=== PATIENT | male | born 1955 | race Caucasian/White ===

== ENCOUNTER 2017-09-27 16:04 | Emergency (ER) | payer MEDICARE, SELFPAY ==
--- NOTE | 2017-09-27 15:05 | RAD_ITS ---
STUDY: X-RAY - LEFT SHOULDER REASON FOR EXAM: Male, 62 years old. Dislocated shoulder TECHNIQUE: 1 view(s) of the shoulder. COMPARISON: None. FINDINGS: Anterior dislocation of the shoulder. No evidence of fracture. Degenerative changes RAD/Shoulder One View IMPRESSION: Shoulder dislocation Electronically Signed: Adriano Haynes DO at 15:32 EDT Tel , Service support ,
--- NOTE | 2017-09-27 15:50 | RAD_ITS ---
STUDY: X-RAY - LEFT SHOULDER REASON FOR EXAM: Male, 62 years old. Post reduction. TECHNIQUE: 2 view(s) of the shoulder. COMPARISON: None. FINDINGS: Note that no previous exams are provided. No evidence for dislocation or subluxation. No fracture visualized. Severe degenerative changes. The soft tissue structures are unremarkable. Normal visualized pulmonary apex. RAD/Shoulder min 2 Views IMPRESSION: No dislocation or subluxation. Degenerative changes. Electronically Signed: Neo Coulter MD at 16:08 EDT , Service support ,
--- NOTE | 2017-09-27 16:04 | DT_ITS ---
This patient was seen during an EMR downtime September 21, 2017 - September 28, 2017. This patient may have a combination of paper and electronic documentation or all paper documentation. All documentation is viewable within the e-chart portion of [email or web address] for each patient visit.
== END 2017-09-27 16:58 | disposition home or self-care (01) ==
LOC: ED 09-28 08:26
PROVIDERS: Emergency Provider Emergency Medicine; Family Provider Family Medicine; PCP Family Medicine
DX: S43.005A Unspecified dislocation of left shoulder joint, initial encounter (principal); X58.XXXA Exposure to other specified factors, initial encounter; Y93.64 Activity, baseball; Y92.9 Unspecified place or not applicable; I10 Essential (primary) hypertension; E78.00 Pure hypercholesterolemia, unspecified; F41.9 Anxiety disorder, unspecified; F32.9 Major depressive disorder, single episode, unspecified; Z79.899 Other long term (current) drug therapy
CPT/HCPCS: 23650; 73020; 73030; 96374; 99285; A4216

== ENCOUNTER 2022-04-10 21:58 | Emergency (ER) | payer MEDICARE, SELFPAY ==
[2022-04-10 21:59] VITALS: BP 168/91; PULSE 83; RESP 15; TEMP 36.9; O2SAT 95; BMI 29.5
--- NOTE | 2022-04-10 22:15 | EDS_ITS ---
HPI History of Present Illness Chief Complaint: Lower Extremity Injury Narrative Narrative: Patient presents with left foot pain. He states this started yesterday when he was walking up a hill and it started to hurt. Now every time he walks or steps on it it hurts. If he rests it it does not hurt that much. No significant swelling. He states there is a little bit of bruising in the tip but it does not hurt where its bruised. No calf pain or swelling. No chest pain or trouble breathing. He is not on any blood thinners. Note he is listed as being on Vasotec but he states he has not been taking it. This might be contributing to his slightly elevated blood pressure. PFSH PFS Home Medications aspirin 81 mg chewable tablet 81 mg PO DAILY@0800 06/25/15 [History Last Taken 06/24/15] citalopram 40 mg tablet 40 mg PO DAILY 06/25/15 [History Last Taken 06/25/15] enalapril maleate 20 mg tablet (Vasotec) 20 mg PO DAILY 06/25/15 [History Last Taken 06/25/15] meloxicam 15 mg tablet (Mobic) 15 mg PO QHS 06/25/15 [History Last Taken 06/24/15] simvastatin 20 mg tablet 20 mg PO QHS 06/25/15 [History Last Taken 06/24/15] multivitamin (Daily Multiple tablet) 1 ea PO DAILY 10/21/15 [History Last Taken Unknown] hydrocodone-acetaminophen 5-325mg 5mg-325mg 1 - 2 tab PO Q4H PRN PRN Pain ##30 11/02/15 [Rx Last Taken Unknown] Allergy/AdvReac Type Severity Reaction Status Date / Time No Known Allergies Allergy Verified 04/10/22 22:01 Social History Smoking Status: Never smoker ROS ROS ED Constitutional Constitutional ED: Denies chills or fever(s) Gastrointestinal Gastrointestinal: Denies nausea or vomiting Musculoskeletal Musculoskeletal: Reports arthralgias and other Details: See history of present illness. Integumentary Denies rash Neurologic Neurologic: Denies paresthesias or weakness Hematologic/Lymphatic Hematologic/Lymphatic: Denies easy bleeding, easy bruising or lymphadenopathy Allergic/Immunologic Allergic/Immunologic ED: Denies urticaria EXAM Physical Exam Const Vital Signs: 04/10/22 21:59 Temperature 98.5 F Temperature Source Temporal Pulse Rate 83 Respiratory Rate 15 Blood Pressure 168/91 H Blood Pressure Mean 116 Pulse Ox 95 Oxygen Delivery Method Room Air Positive well nourished and well developed General Appearance ED: well developed HEENT atraumatic Resp normal respiratory effort Back/Spine no CVA tenderness Extremity full ROM Extremity Narrative: Patient does have just a little bit of ecchymosis at the base of his third toe. But he states it does not hurt there and is nontender. He does have tenderness at the proximal aspect of the fifth and a little bit toward the fourth metatarsal. There appears to be a small amount of swelling locally. No erythema. No warmth. No lymphangitic streaking. No diffuse swelling. No involvement of any problems of the ankle or calf or higher. General Extremety ED: Negative for cyanosis or edema General Extremity: Negative for cyanosis or edema Neuro moves all extremities and no sensory deficits noted Sensorium / Orientation: alert Skin no wounds Skin Narrative: See above MDM MDM MDM Narrative Medical decision making narrative: X-ray showed no acute fracture. Base patient will use ice elevation rest. I explained that if it still hurting it may need repeat x-ray. He could have a stress fracture. We discussed reasons to return including swelling or swelling or pain of the leg. Radiography Diagnostic Testing: Clinical Impression(s) from Imaging Studies Foot X-Ray 04/10/22 22:25 IMPRESSION: Negative left foot x-rays. Electronically Signed: Trevin Ng MD at 22:36 EST Reading Location ID and State: [facility][note 3]6 / [place] Tel , Service support , Three-view x-ray left foot looked at by me and read by radiology shows no acute process. I do see some signs of arthritic changes. Discharge Plan Triage Chief Complaint: Lower Extremity Injury ED Provider: Trino Michelle Dx/Rx/DC Orders Clinical Impression: Acute pain of left foot Instructions: ED Foot Sprain Prescriptions: No Action citalopram 40 MG tablet 40 mg PO DAILY Label Comments: antidepressant enalapril maleate [Vasotec] 20 MG tablet 20 mg PO DAILY Label Comments: HTN meloxicam [Mobic] 15 MG tablet 15 mg PO QHS Label Comments: anti-inflammatory simvastatin 20 MG tablet 20 mg PO QHS Label Comments: cholesterol aspirin 81 MG Tab.Chew 81 mg PO DAILY@0800 Label Comments: heart health multivitamin [Daily Multiple] 1 EACH tablet 1 ea PO DAILY hydrocodone-acetaminophen 1 TABLET tablet 1 - 2 tab PO Q4H PRN PRN (Reason: Pain) Qty: 30 0RF Primary Care Provider: Prashant Cruz Referrals: Prashant Cruz MD [Primary Care Provider] - 5-7 Days Disposition Disposition: Home, Self Care
--- NOTE | 2022-04-10 22:25 | RAD_ITS ---
EXAM: XR LEFT FOOT COMPLETE, 3 OR MORE VIEWS CLINICAL INDICATION: Trauma. Left lateral foot pain for 2 days. TECHNIQUE: Frontal, lateral and oblique views of the left foot. This report was created using [employer] report generation technology. COMPARISON: None. FINDINGS: BONES/JOINTS: Unremarkable. No acute fracture. No subluxation. Normal alignment. Preservation of the joint space. No sclerotic or destructive changes observed. SOFT TISSUES: Unremarkable. No soft tissue swelling or gas. No radiopaque foreign body. RAD/Foot min 3 Views IMPRESSION: Negative left foot x-rays. Electronically Signed: Trevin Ng MD at 22:36 EST ,
== END 2022-04-10 23:29 | disposition home or self-care (01) ==
PROVIDERS: Emergency Provider Emergency Medicine; PCP Family Medicine; Visit Provider Emergency Medicine
DX: M79.672 Pain in left foot (principal)
CPT/HCPCS: 73630; 99282

== ENCOUNTER 2022-07-24 15:43 | Emergency (ER) | payer MEDICARE, SELFPAY ==
[2022-07-24 15:44] VITALS: BP 139/89; PULSE 64; RESP 16; O2SAT 94
[2022-07-24 15:45] VITALS: BP 152/91; PULSE 69; RESP 12; TEMP 36.1; O2SAT 94; BMI 30.4
--- NOTE | 2022-07-24 15:56 | EDS_ITS ---
HPI History of Present Illness Chief Complaint: Laceration Informant: patient Occured/Mechanism Mechanism/Context: Yes fall Onset/Context/Timing Onset: Today Associated Symptoms Associated Symptoms: Positive for Loss of Funtion; Negative for Parasthesia or Weakness Narrative Narrative: [id number]-[id number] patient states he was coming down some steps and there was a board that he slipped on causing him to fall and GM his left ring finger on concrete. States he is not exactly sure how it occurred, but he noticed a laceration and he is unable to move it. Denies any other fingers that are injured. Sustained abrasions to his forehead and his right hand denies any other injuries. He has no headache, loss of consciousness, vision trouble, focal neurologic symptoms. He has been able to ambulate since then. Denies any other injuries or pain. No prodromal symptoms. Tetanus Immunization: Unknown [facility] Medical History (Updated 07/24/22 @ 17:[address] Josue Dixon MD) Depression Hyperlipidemia Hypertension Transient ischemic attack Home Medications aspirin 81 mg chewable tablet 81 mg PO DAILY@0800 06/25/15 [History Last Taken 06/24/15] citalopram 40 mg tablet 40 mg PO DAILY 06/25/15 [History Last Taken 06/25/15] enalapril maleate 20 mg tablet (Vasotec) 20 mg PO DAILY 06/25/15 [History Last Taken 06/25/15] meloxicam 15 mg tablet (Mobic) 15 mg PO QHS 06/25/15 [History Last Taken 06/24/15] simvastatin 20 mg tablet 20 mg PO QHS 06/25/15 [History Last Taken 06/24/15] multivitamin (Daily Multiple tablet) 1 ea PO DAILY 10/21/15 [History Last Taken Unknown] hydrocodone-acetaminophen 5-325mg 5mg-325mg 1 - 2 tab PO Q4H PRN PRN Pain ##30 11/02/15 [Rx Last Taken Unknown] cephalexin 500 mg capsule 500 mg PO TID 5 days #15 CAPSULES 07/24/22 [Rx Last Taken Unknown] Allergy/AdvReac Type Severity Reaction Status Date / Time No Known Allergies Allergy Verified 07/24/22 15:45 Social History Smoking Status: Never smoker ROS ROS ED Constitutional Constitutional ED: Denies chills or fever(s) Eyes Eyes: Denies change in vision or diplopia ENT ENT ED: Denies dental pain, ear pain or epistaxis Cardiovascular Cardiovascular: Denies chest pain Respiratory/Chest Respiratory/Chest: Denies cough Gastrointestinal Gastrointestinal: Denies nausea or vomiting Musculoskeletal Musculoskeletal: Reports extremity pain; Denies neck pain Integumentary Reports Abrasions and wounds; Denies rash Neurologic Neurologic: Denies headache(s), paresthesias or weakness EXAM Physical Exam Const Vital Signs: 07/24/22 15:45 Temperature 97 F L Temperature Source Temporal Pulse Rate 69 Respiratory Rate 12 Blood Pressure 152/91 H Blood Pressure Mean 111 Pulse Ox 94 Oxygen Delivery Method Room Air Positive well nourished and well developed General Appearance ED: well developed and NAD HEENT Reports moist mucous membranes HEENT Narrative: Left forehead, right mandible body area abrasions, no bony tenderness, deformities, or other signs of trauma. No mirza sign or periorbital ecchymosis. No CSF otorhinorrhea. Eyes PERRL and EOMs intact bilaterally Neck full ROM and supple Chest Wall inspection of chest normal and palpation of chest normal Resp normal respiratory effort Back/Spine normal ROM and normal to inspection Extremity Extremity Narrative: Patient has a deformity of the left middle finger PIPJ, it is hyperextended and locked into place. At the volar aspect at this area, there is a laceration that is approximately 3 cm in length, horizontal, exposing the FDS and FDP tendons, they do not appear to be injured, however at this time patient is not able to use them because of the deformity. Laceration appears clean, there is no bone visible, nor foreign debris. Also tender in prox phalanxes of left ring and little fingers, there is bruising and ecchymosis here, and there is a deformity of the ring finger which is in a radial deviation. No other areas of tenderness throughout the rest of the left hand, or the right. Full range of motion throughout all joints of all 4 extremities other than the left ring finger. Neuro oriented x3, no focal motor deficits and no sensory deficits noted Sensorium / Orientation: alert Psych mental status grossly normal and thought process normal Skin no wounds Rashes: no rashes MDM MDM MDM Narrative Medical decision making narrative: Clinically consistent with a dislocated PIPJ of the left middle finger, given the laceration, prior to performing any procedures an x-ray of the left hand was obtained. 3 views of my interpretation are consistent with dislocation of the PIPJ middle finger without fracture, but there are also fractures of the proximal phalanxes of fingers 4 and 5. Radiology in agreement. Postreduction films 3 views of the left ring and middle fingers were obtained and show good reduction of the PIPJ dislocation of the middle finger and good reduction of the fracture of the ring finger on my interpretation. Laceration was repaired, irrigated thoroughly see the procedure note, he will be placed on prophylactic antibiotics due to involvement/exposure of the tendons. With regards to other injuries, patient does not have any headache, syncope, focal neurologic symptoms or other signs of a head injury and he is not on any anticoagulants or antiplatelets other than a baby aspirin to suggest that he requires a CT of the head. Patient meets criteria with regards to the [place] head trauma CT rule, for observation. Patient's tetanus was updated with a booster. I discussed with Dr. Alvarado who was on for orthopedics, he advises referral to hand surgery at [facility], discussed this with the patient, he has a high risk of needing surgery for these fractures, therefore he will be referred and prescribed cephalexin for the next 5 days. Procedures Lacerations L middle finger: Length: 3 cm Depth: Tendon Shape: Linear Prep: Sterile Conditions and Chlorhexadine Laceration repair: Lidocaine (plain 1%) and Local (2cc) Irrigated (ml): 60 Number of Sutures/[place]: 6 Suture Information: Ethilon, Simple and 5-0 Comment: After exploring tendons throughout the range and verifying there was no apparent injury to them and they are both functional, FDP and FDS. Upper Extremity Splints Upper Extremity Splint: Orthoglass and Ulnar gutter (Including fingers 3-5 and proximal to the wrist, placed in gentle flexion. Neurovascularly intact distally after placement.) Splint Fabrication: Fabricated Location: Left Other Procedures Procedure(s): Closed reduction left middle finger PIPJ dislocation: After verbal consent after discussing pros and cons, I gradually distracted the left middle finger, provided a gentle amount of hyperextension followed by flexion/reduction with a palpable clunk, followed by improvement of discomfort by the patient. Afterwards, flexion of both at the DIPJ and the PIPJ were verified and able to be performed by the patient fully without discomfort, including extension. Postreduction x-rays verify good reduction with no acute fracture. Closed reduction left ring finger proximal phalanx displaced fracture: After paty bal consent after discussing pros and cons with the patient, I gradually distracted the left ring finger and performed manual manipulation at an ulnar aspect, improving the deformity, verifying good flexion of DIP and PIP joints afterwards, verified by postreduction x-ray 3 views of mitral rotation. Discharge Plan Triage Chief Complaint: Laceration ED Provider: Josue Dixon Dx/Rx/DC Orders Clinical Impression: Open dislocation of proximal interphalangeal (PIP) joint of left middle finger, Closed displaced fracture of proximal phalanx of left ring finger, Closed displaced fracture of proximal phalanx of left little finger, Laceration of left middle finger w/o foreign body w/o damage to nail Instructions: ED Finger Dislocation, ED Closed Hand Fracture (Adult), ED Splint Care, Fiberglass Prescriptions: New cephalexin [cephalexin] 500 mg capsule 500 mg PO TID 5 Days Qty: 15 0RF No Action citalopram 40 MG tablet 40 mg PO DAILY Label Comments: antidepressant enalapril maleate [Vasotec] 20 MG tablet 20 mg PO DAILY Label Comments: HTN meloxicam [Mobic] 15 MG tablet 15 mg PO QHS Label Comments: anti-inflammatory simvastatin 20 MG tablet 20 mg PO QHS Label Comments: cholesterol aspirin 81 MG tablet,chewable 81 mg PO DAILY@0800 Label Comments: heart health multivitamin [Daily Multiple] 1 EACH tablet 1 ea PO DAILY hydrocodone-acetaminophen 1 TABLET tablet 1 - 2 tab PO Q4H PRN PRN (Reason: Pain) Qty: 30 0RF Primary Care Provider: Prashant Cruz Referrals: [facility] [Outside] - As soon as possible (call and ask for appt with [facility]; 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
--- NOTE | 2022-07-24 16:06 | RAD_ITS ---
INDICATION: injury EXAMINATION/TECHNIQUE: X-RAY - LEFT XR Hand Min 3 Views 3 VIEWS COMPARISON: None. FINDINGS: Acute, transverse fracture of the fourth proximal phalangeal shaft with 4 mm medial displacement of the distal fragment and moderate apex volar angulation. No intra-articular involvement. Acute, transverse fracture of the fifth proximal phalangeal shaft with 2 mm medial displacement of the distal fragment and moderate apex volar angulation. No intra-articular involvement. Moderate lateral subluxation at the proximal interphalangeal joint of the third digit. No fracture. Osteoarthrosis of the radio scaphoid joint with joint space narrowing and sclerosis. Small, well-corticated chronic fracture fragment arising from the radial styloid versus head of the scaphoid. Mild subchondral cystic changes. Remote healed ulnar styloid fracture. Mild widening of the scapholunate interval. Mild narrowing of the scaphoid-trapezium joint. Soft tissues are unremarkable. No radiopaque foreign body or soft tissue gas. RAD/Hand Min 3 Views IMPRESSION: Acute fractures of the fourth and fifth proximal phalanges. Moderate lateral subluxation at the third PIP joint. Mild osteoarthrosis of the wrist. Electronically Signed: Faby Stevens MD at 16:26 EDT Reading Location ID and State: [id number] / Tel , Service support ,
[2022-07-24] MEDS: Lidocaine 1% (20 ml mdv) 20 ML Vial INFILT (16:11)
[2022-07-24] MEDS: Diphth,Pertuss(Acell),Tet Vac 0.5 ML Vial IM (16:11)
--- NOTE | 2022-07-24 16:41 | RAD_ITS ---
INDICATION: postreduction EXAMINATION/TECHNIQUE: X-RAY - LEFT HAND XR Fingers Min 2 Views 3 VIEWS COMPARISON: None. FINDINGS: Small fracture fragment anterior to the third proximal phalangeal head consistent with chip or avulsion fracture. No dislocation. Alignment is anatomic. Joint spaces are otherwise well-maintained. Marked soft tissue swelling around the proximal phalanx and PIP joint. No radiopaque foreign body or soft tissue gas. RAD/Finger(s) Min 2 Views IMPRESSION: Anatomic alignment status post reduction. Chip or avulsion fracture anterior to the third proximal phalanx. Soft tissue swelling. Electronically Signed: Faby Stevens MD at 17:17 EDT Reading Location ID and State: [id number] / Tel , Service support ,
--- NOTE | 2022-07-24 17:11 | CONS.ORTHO ---
HPI Consult Data Date of Consult: 07/24/22 HPI Narrative HPI Narrative: YADIEL ROLAND JR, is a 66 M who presents for a hand injury. PIP reduced and splinted and laceration I and D and closure by ED provider Dr. Reynolds. [facility] Medical History (Updated 07/24/22 @ 17:12 by Yoni Alvarado MD) Depression Hyperlipidemia Hypertension Transient ischemic attack Home Medications aspirin 81 mg chewable tablet 81 mg PO DAILY@0800 06/25/15 [History Last Taken 06/24/15] citalopram 40 mg tablet 40 mg PO DAILY 06/25/15 [History Last Taken 06/25/15] enalapril maleate 20 mg tablet (Vasotec) 20 mg PO DAILY 06/25/15 [History Last Taken 06/25/15] meloxicam 15 mg tablet (Mobic) 15 mg PO QHS 06/25/15 [History Last Taken 06/24/15] simvastatin 20 mg tablet 20 mg PO QHS 06/25/15 [History Last Taken 06/24/15] multivitamin (Daily Multiple tablet) 1 ea PO DAILY 10/21/15 [History Last Taken Unknown] hydrocodone-acetaminophen 5-325mg 5mg-325mg 1 - 2 tab PO Q4H PRN PRN Pain ##30 11/02/15 [Rx Last Taken Unknown] Allergy/AdvReac Type Severity Reaction Status Date / Time No Known Allergies Allergy Verified 07/24/22 15:45 Social History Smoking Status: Never smoker Vital Signs Vital Signs Vital Signs: 07/24/22 15:45 07/24/22 15:44 Temperature 97 F L Temperature Source Temporal Pulse Rate 69 64 Respiratory Rate 12 16 Blood Pressure 152/91 H 139/89 H Blood Pressure Mean 111 105 Pulse Ox 94 94 Oxygen Delivery Method Room Air Room Air Weight Weight: 205 lb 11.06 oz Body Mass Index (BMI) 30.4 Radiology Impression Hand X-Ray 07/24/22 16:06 IMPRESSION: Acute fractures of the fourth and fifth proximal phalanges. Moderate lateral subluxation at the third PIP joint. Mild osteoarthrosis of the wrist. Electronically Signed: Faby Stevens MD at 16:26 EDT Reading Location ID and State: [id number] / Tel , Service support , [facility] Imaging Services [address] [place] [address] Hand Min 3 Views MR#: [id number] Acct: [id number] Name: YADIEL ROLAND JR Rep #: [id number] : 1955 M 66 From: Faby driscoll MD PCP: Dr. Prashant Cruz MD Status: PRE ER Study: Hand Min 3 Views Date of Exam: 07/24/22 Exam# [id number] Ordering Dr: Josue Dixon MD INDICATION: injury EXAMINATION/TECHNIQUE: X-RAY - LEFT XR Hand Min 3 Views 3 VIEWS COMPARISON: None. FINDINGS: Acute, transverse fracture of the fourth proximal phalangeal shaft with 4 mm medial displacement of the distal fragment and moderate apex volar angulation. No intra-articular involvement. Acute, transverse fracture of the fifth proximal phalangeal shaft with 2 mm medial displacement of the distal fragment and moderate apex volar angulation. No intra-articular involvement. Moderate lateral subluxation at the proximal interphalangeal joint of the third digit. No fracture. Osteoarthrosis of the radio scaphoid joint with joint space narrowing and sclerosis. Small, well-corticated chronic fracture fragment arising from the radial styloid versus head of the scaphoid. Mild subchondral cystic changes. Remote healed ulnar styloid fracture. Mild widening of the scapholunate interval. Mild narrowing of the scaphoid-trapezium joint. Soft tissues are unremarkable. No radiopaque foreign body or soft tissue gas. RAD/Hand Min 3 Views IMPRESSION: Acute fractures of the fourth and fifth proximal phalanges. Moderate lateral subluxation at the third PIP joint. Mild osteoarthrosis of the wrist. Electronically Signed: Faby Stevens MD at 16:26 EDT Reading Location ID and State: [id number] / Tel , Service support , CC: Dr. Josue Dixon MD; Dr. Prashant Cruz MD Md Allergy Immunology: Assessment & Plan Assessment/Plan (1) Injury of left hand: PLAN: 66 M angulated fractures of base 4/5th digit proximal phalanx - recommended to be aligned and pinned by hand surgeon (not myself), and to splint and urgent 1 day FU again with hand specialist for the 3rd digit PIP dislocation / reduction. Dr. Reynolds understands and agrees with the plan. No need or request for in person assessment.
[2022-07-24 17:16] VITALS: BP 123/92; PULSE 82; RESP 16; O2SAT 97
[2022-07-24] MEDS: Cephalexin 250 MG Capsule 500 MG PO (17:30)
== END 2022-07-24 17:40 | disposition home or self-care (01) ==
PROVIDERS: Emergency Provider Emergency Medicine; PCP Family Medicine; Visit Provider Emergency Medicine
DX: S62.613B Displaced fracture of proximal phalanx of left middle finger, initial encounter for open fracture (principal); S62.615A Displaced fracture of proximal phalanx of left ring finger, initial encounter for closed fracture; S62.617A Displaced fracture of proximal phalanx of left little finger, initial encounter for closed fracture; Z23 Encounter for immunization; Z86.73 Personal history of transient ischemic attack (TIA), and cerebral infarction without residual deficits; W10.9XXA Fall (on) (from) unspecified stairs and steps, initial encounter
CPT/HCPCS: 12002; 73130; 73140; 90471; 90715; 99285

== ENCOUNTER 2023-06-30 10:11 | Emergency (ER) | payer MEDICARE, SELFPAY ==
[2023-06-30 10:13] VITALS: BP 150/88; PULSE 70; RESP 16; TEMP 36.4; O2SAT 94; BMI 28.3
--- NOTE | 2023-06-30 11:00 | RAD_ITS ---
STUDY: X-RAY CHEST REASON FOR EXAM: Male, 67 years old. Atypical chest pain TECHNIQUE: PA and lateral views of the chest. COMPARISON: None. FINDINGS: The lungs are clear and expanded. There is no demonstrated pleural abnormality. Normal size heart. Normal mediastinum and raul. Normal visualized pulmonary arteries. Normal visualized aortic arch and descending thoracic aorta. There are diffuse degenerative changes of the visualized thoracic spine. Normal visualized ribs, clavicles, and shoulders. There is no demonstrated abnormality of the visualized soft tissue structures of the upper abdomen. RAD/Chest PA and Lateral IMPRESSION: No acute pulmonary process Electronically Signed: Judson Jain MD at 11:51 EDT ,
--- NOTE | 2023-06-30 11:20 | RAD_ITS ---
STUDY: X-RAY - RIGHT CLAVICLE REASON FOR EXAM: Male, 67 years old. soft tissue mass TECHNIQUE: 2 view(s) of the clavicle. COMPARISON: None. FINDINGS: Normal clavicle. There is degenerative arthrosis of the acromioclavicular joint without inferior osseous prominence. Normal visualized sternoclavicular articulation. Normal visualized pulmonary apex. There is a soft tissue mass dorsal to the distal clavicle and acromioclavicular joint that does not demonstrate an associated osseous abnormality. Specifically there is no fracture or erosive change to the clavicle. There is significant glenohumeral arthrosis as well. RAD/Clavicle IMPRESSION: There is a soft tissue mass dorsal to the clavicle but no associated osseous abnormality noted. Moderate to severe glenohumeral and acromioclavicular joint arthrosis No acute fracture, dislocation or separation Electronically Signed: Judson Jain MD at 11:54 EDT ,
[2023-06-30 15:22] VITALS: BP 148/88; PULSE 68; RESP 16; TEMP 36.8; O2SAT 98
--- NOTE | 2023-06-30 16:23 | EX.ED.DYSGE1 ---
HPI History of Present Illness Chief Complaint: Other, Pain/Inj Informant: patient Narrative Narrative: Delayed note to system going down. Presented for evaluation after noticing a lump mass on his right clavicle a week ago. He has no pain. He states he never paid attention to the area until a week ago. He has had a previous right rotator cuff surgery in the . Reports there is a family history of lung cancer and colon cancer. He is concerned of this. He denies any unintentional weight loss. He denies any night sweats. Denies any fevers. Prior similar symptoms: No PFSH PFSH Medical History Depression Hyperlipidemia Hypertension Transient ischemic attack Home Medications aspirin 81 mg chewable tablet 81 mg PO DAILY@0800 06/25/15 [History Last Taken 06/24/15] citalopram 40 mg tablet 40 mg PO DAILY 06/25/15 [History Last Taken 06/25/15] enalapril maleate 20 mg tablet (Vasotec) 20 mg PO DAILY 06/25/15 [History Last Taken 06/25/15] meloxicam 15 mg tablet (Mobic) 15 mg PO QHS 06/25/15 [History Last Taken 06/24/15] simvastatin 20 mg tablet 20 mg PO QHS 06/25/15 [History Last Taken 06/24/15] multivitamin (Daily Multiple tablet) 1 ea PO DAILY 10/21/15 [History Last Taken Unknown] hydrocodone-acetaminophen 5-325mg 5mg-325mg 1 - 2 tab PO Q4H PRN PRN Pain ##30 11/02/15 [Rx Last Taken Unknown] cephalexin 500 mg capsule 500 mg PO TID 5 days #15 CAPSULES 07/24/22 [Rx Last Taken Unknown] Allergy/AdvReac Type Severity Reaction Status Date / Time No Known Allergies Allergy Verified 06/30/23 10:16 Social History Smoking Status: Never smoker ROS ROS ED Constitutional Constitutional ED: Denies chills, fever(s) or sweats Eyes Eyes: Denies change in vision ENT ENT ED: Denies dysphagia or sore throat Cardiovascular Cardiovascular: Denies chest pain, leg edema, palpitations or racing heartbeat Respiratory/Chest Respiratory/Chest: Denies cough, dyspnea or dyspnea on exertion Gastrointestinal Gastrointestinal: Denies abdominal pain, diarrhea, nausea or vomiting Genitourinary Genitourinary ED: Denies dysuria, hematuria or urinary frequency Musculoskeletal Musculoskeletal: Denies back pain, extremity pain or neck pain Integumentary Reports other Details: Soft tissue mass right shoulder ; Denies rash or wounds Neurologic Neurologic: Denies headache(s), paresthesias or weakness EXAM Physical Exam Const Vital Signs: 06/30/23 10:13 06/30/23 10:44 06/30/23 15:22 Temperature 97.5 F L 98.2 F Temperature Source Temporal Pulse Rate 70 68 Respiratory Rate 16 16 Respiratory Effort Normal Non-Labored Blood Pressure 150/88 H 148/88 H Blood Pressure Mean 108 108 Pulse Ox 94 98 Oxygen Delivery Method Room Air Positive well nourished and well developed General Appearance ED: well developed and NAD HEENT Reports moist mucous membranes normocephalic and atraumatic Eyes PERRL, EOMs intact bilaterally and conjunctivae normal General Eye ED: Yes normal appearance of both eyes Neck no lymphadenopathy and supple General: Negative for tenderness Chest Wall Chest: Negative for tenderness Resp normal respiratory effort and normal air movement Effort and Inspection: symmetric chest movement; Negative for respiratory distress Cardio regular rate, regular rhythm and no murmurs Peripheral Pulses: pulses 2+ throughout GI normal to inspection, nondistended, normoactive bowel sounds and non-tender Palpation: Negative for guarding or rebound tenderness present Back/Spine no CVA tenderness and no thoracic nor lumbar tenderness Extremity Extremity Narrative: Right upper extremity: Distal clavicle notes slightly larger golf ball size mass is nontender. Full range of motion of the shoulder joint. Previous scar deltoid region. General Extremety ED: Negative for edema or tenderness General Extremity: Negative for edema Neuro oriented x3 and no sensory deficits noted Sensorium / Orientation: awake and alert Skin no rashes or lesions noted and no wounds MDM MDM MDM Narrative Medical decision making narrative: Interventions / MDM: Differential diagnosis: Tissue mass Diagnosis considered but do not suspect: Bone mass My EKG interpretation: N/A Imaging independently reviewed and interpreted by myself: 2 view chest x-ray: No lung mass. Soft tissue mass above the clavicle no bony involvement. 2 view clavicle x-ray: Soft tissue mass no bony involvement. External documents reviewed: N/A Test considered but not ordered:N/A ED course: Patient soft tissue masses noticed a week ago. No discomfort. Family history of cancers. Chest x-ray clavicle x-rays ordered there is no bony involvement. He follows [facility] PCP. While in the department he called his PCP office has appointment tomorrow in the office. He will likely need referral with his concerns for evaluation of the soft tissue mass for further rule out. All questions were answered. Discharge papers handwritten due to system being down. Re-evaluation: stable Disposition discussed with patient/family/significant other: Patient Case discussed with consulting clinician: N/A This note was generated with [employer] dictation software. It may contain incorrect words, spelling, and punctuation that were not noted in checking the note before signing. Discharge Plan Triage Chief Complaint: Other, Pain/Inj ED Provider: Skip Montelongo Dx/Rx/DC Orders Clinical Impression: Mass of soft tissue Prescriptions: No Action citalopram 40 MG tablet 40 mg PO DAILY Patient Comments: antidepressant enalapril maleate [Vasotec] 20 MG tablet 20 mg PO DAILY Patient Comments: HTN meloxicam [Mobic] 15 MG tablet 15 mg PO QHS Patient Comments: anti-inflammatory simvastatin 20 MG tablet 20 mg PO QHS Patient Comments: cholesterol aspirin 81 MG tablet,chewable 81 mg PO DAILY@0800 Patient Comments: heart health multivitamin [Daily Multiple] 1 EACH tablet 1 ea PO DAILY hydrocodone-acetaminophen 1 TABLET tablet 1 - 2 tab PO Q4H PRN PRN (Reason: Pain) Qty: 30 0RF cephalexin [cephalexin] 500 mg capsule 500 mg PO TID 5 Days Qty: 15 0RF Primary Care Provider: Prashant Cruz Referrals: Prashant Cruz MD [Primary Care Provider] - Disposition Disposition: Home, Self Care
== END 2023-06-30 15:22 | disposition home or self-care (01) ==
PROVIDERS: Emergency Provider Emergency Medicine; PCP Family Medicine; Visit Provider Emergency Medicine
DX: R22.2 Localized swelling, mass and lump, trunk (principal); Z86.73 Personal history of transient ischemic attack (TIA), and cerebral infarction without residual deficits
CPT/HCPCS: 71046; 73000; 99283

== ENCOUNTER 2024-06-18 20:30 | Emergency (ER) | payer MEDICARE, SELFPAY ==
[2024-06-18] VITALS (16 sets, daily range): BP systolic 137–156; BP diastolic 40–90; PULSE 66–80; RESP 16–20; TEMP 36.6–36.8; O2SAT 93–96; BMI 29.0
--- NOTE | 2024-06-18 20:41 | EDS_ITS ---
HPI History of Present Illness Chief Complaint: Chest Pain Informant: patient Onset/Context/Timing Onset: Today Activity at onset: gradual and rest Timing: Continuous Location: Left Chest and - (Left arm) Worsened By: Nothing Relieved By: Nothing Associated Symptoms: Positive for Cough; Negative for Nausea, Vomiting, Diaphoresis, Dyspnea, Fever, Lightheadedness, Acid Reflux or Palpitations Narrative Narrative: Patient presents with chest pain that began today. Patient states it started in his left arm and then spread into the left side of his chest. Patient states it has been intermittent. Patient describes it as sharp. Patient states nothing makes it better nothing makes it worse. Patient admits to a mild cough. Patient denies any fevers or chills. Patient denies any nausea or vomiting. Patient denies any shortness of breath or lightheadedness. CVD Risk Factors: Positive for Hypertension; Negative for Diabetes, Hypercholesterolemia, Family History 1' </=55 or Smoking PE Risk Factors: Negative for Recent Travel/Surgery, Recent Immobilization, Prior DVT or PE, Cancer or OCP + Smoking + >/=35 PFSH PFSH Medical History (Updated 06/18/24 @ 23:[address] Orlando Meza, ) Rotator cuff dysfunction Carpal tunnel syndrome, bilateral Hypertension Hyperlipidemia Depression Transient ischemic attack Home Medications ?Medication ?Instructions ?Recorded ?Last Taken ?Type aspirin 81 mg chewable tablet 81 mg PO DAILY@0800 11/0206/17/24 History citalopram 40 mg tablet 40 mg PO DAILY 06/25/1511/02 History enalapril maleate 20 mg tablet 20 mg PO DAILY 06/25/15 06/25/15 History (Vasotec) Allergy/AdvReac Type Severity Reaction Status Date / Time No Known Allergies Allergy Verified 06/18/24 20:39 Surgical History (Updated 06/18/24 @ 20:[address] Orlando Meza, ) History of carpal tunnel surgery Hx of repair of right rotator cuff H/O hand surgery Social History Smoking Status: Never smoker ROS ROS ED Constitutional Constitutional ED: Denies chills or fever(s) Eyes Eyes: Denies blurry vision or change in vision ENT ENT ED: Denies rhinorrhea or sore throat Cardiovascular Cardiovascular: Reports as per HPI and chest pain; Denies palpitations Respiratory/Chest Respiratory/Chest: Reports cough; Denies dyspnea Gastrointestinal Gastrointestinal: Denies nausea or vomiting Genitourinary Genitourinary ED: Denies dysuria or hematuria Musculoskeletal Musculoskeletal: Reports neck pain; Denies back pain Integumentary Denies abscess or rash Neurologic Neurologic: Denies headache(s) or weakness Allergic/Immunologic Allergic/Immunologic ED: Denies mouth swelling or urticaria EXAM Physical Exam Const Vital Signs: 06/18/24 20:31 06/18/24 20:53 06/18/24 21:00 Temperature 98.2 F Temperature Source Oral Pulse Rate 73 69 Respiratory Rate 16 Blood Pressure 156/88 H 142/82 H Blood Pressure Mean 110 98 Pulse Ox 95 94 Oxygen Delivery Method Room Air 06/18/24 21:02 06/18/24 21:10 06/18/24 21:15 Temperature Temperature Source Pulse Rate 80 72 Respiratory Rate Blood Pressure 149/82 H Blood Pressure Mean 98 Pulse Ox 95 Oxygen Delivery Method Room Air 06/18/24 21:30 06/18/24 21:30 06/18/24 21:45 Temperature Temperature Source Pulse Rate 76 72 69 Respiratory Rate 17 Blood Pressure 142/82 H 146/84 H Blood Pressure Mean 102 99 Pulse Ox 93 94 96 Oxygen Delivery Method Room Air 06/18/24 22:00 06/18/24 22:15 06/18/24 22:30 Temperature Temperature Source Pulse Rate 68 74 Respiratory Rate Blood Pressure 140/85 H Blood Pressure Mean 101 Pulse Ox 95 96 95 Oxygen Delivery Method 06/18/24 22:45 06/18/24 23:00 06/18/24 23:15 Temperature Temperature Source Pulse Rate 66 68 71 Respiratory Rate Blood Pressure 137/90 H 146/40 H 139/78 H Blood Pressure Mean 104 72 96 Pulse Ox 93 93 94 Oxygen Delivery Method 06/18/24 23:30 06/18/24 23:40 Temperature 98 F Temperature Source Pulse Rate 70 67 Respiratory Rate 20 H Blood Pressure 149/80 H 149/80 H Blood Pressure Mean 100 103 Pulse Ox 93 Oxygen Delivery Method Positive well nourished and well developed General Appearance ED: well developed and NAD HEENT Reports moist mucous membranes Neck supple and no JVD Chest Wall inspection of chest normal and palpation of chest normal Resp normal respiratory effort and clear to auscultation bilaterally Cardio regular rate and regular rhythm GI soft to palpation, non-tender and non-distended Extremity normal to inspection General Extremety ED: Negative for edema or tenderness General Extremity: Negative for edema Neuro oriented x3, CN's II-XII intact bilaterally and no sensory deficits noted Sensorium / Orientation: awake and alert Motor Exam: strength 5/5 throughout Psych mental status grossly normal Heart Score History: Slightly/Non-Suspicious ECG: Normal Age: >/= 65 years Risk Factors: 1 or 2 Risk Factors Score: 3 MDM MDM MDM Narrative Medical decision making narrative: Differential diagnosis includes cardiac dysrhythmia, cardiac ischemia, pneumonia, bronchitis, electrolyte abnormality, musculoskeletal pain, and anxiety. EKG will be obtained to assess for cardiac dysrhythmia and cardiac ischemia. Chest x-ray will be obtained to assess for pneumonia and bronchitis. CBC will be obtained to assess for leukocytosis and anemia. Basic metabolic profile will be obtained to assess for electrolyte abnormality and renal function. High-sensitivity troponin will be obtained to assess for cardiac ischemia. 2-hour repeat high-sensitivity troponin will be obtained to assess for ongoing cardiac ischemia. Lab Data Attestation: I reviewed the patient's lab results. Lab results narrative: CBC was reviewed. There is a mild leukocytosis of 15.2. The remainder is w ithin normal limits. Basic metabolic profile was reviewed and was within normal limits. Initial high-sensitivity troponin was reviewed and was normal at 18. 2-hour repeat high-sensitivity troponin was reviewed and was normal at 16. Labs: Laboratory Results - last 24 hr 06/18/24 06/18/24 20:49 22:58 WBC 15.2 H RBC 4.82 Hgb 14.0 Hct 41.9 MCV 86.9 MCH 29.0 MCHC 33.4 RDW Std Deviation 46.0 H RDW Coeff of Denys 14.4 Plt Count 267 MPV 11.3 Immature Gran % (Auto) 0.400 Neut % (Auto) 81.1 H Lymph % (Auto) 10.0 L [place] % (Auto) 7.1 Eos % (Auto) 1.1 Baso % (Auto) 0.3 Absolute Neuts (auto) 12.4 H Absolute Lymphs (auto) 1.52 Nucleated RBC % 0 Sodium 138 Potassium 4.1 Chloride Direct 101 Carbon Dioxide 25.1 Anion Gap 12 BUN 15 Creatinine 0.69 L Estim Creat Clear Calc 96.22 Est GFR (MDRD) Non-Af 100 BUN/Creatinine Ratio 21.3 H Glucose 114 H Calcium 8.8 Troponin T High Sens 18 Troponin T Hi Sens 2 Hr 16 Troponin T Hi Sens 2Hr Delta 2 Radiography Chest X-Ray - ED: 2 View, Read by ED Physician, Read by Radiologist and No Acute Disease Diagnostic Testing: Clinical Impression(s) from Imaging Studies Chest X-Ray 06/18/24 20:55 IMPRESSION: Stable examination. No acute cardiopulmonary process detected radiographically Reading Location: [facility] and lateral chest x-ray was obtained. There are 2 views. On my independent interpretation, lung tierney are clear. There is normal cardiac silhouette. Bony thorax is normal. There is no acute process noted. Radiologist also interpreted the x-ray and agrees. EKG Initial EKG: Attestation: I personally reviewed and interpreted this EKG as follows: Interpretation: Sinus Rhythm (73) and No Acute Injury Pattern Comments: EKG was obtained. On my independent interpretation, it showed a normal sinus rhythm with a rate of 73. OK interval, QRS interval, and QTc intervals were all normal. [place] was normal. There are no acute ST or T wave changes. Prior EKG tracings: available for review Prior: Unchanged (11/03/2015) Treatment and Re-Evaluation :: Patient was given aspirin. Patient was advised of his findings. Patient has a HEART score of 3. Patient was advised that this is low risk for acute cardiac event. Patient was instructed to follow-up with his primary care physician. Patient states he has an appointment Thursday afternoon. Patient was instructed to return if worse in any way. Patient understood and was agreeable with the plan. All questions were answered. Discharge Plan Triage Chief Complaint: Chest Pain ED Provider: Orlando Meza Dx/Rx/DC Orders Clinical Impression: Chest pain, Hypertension Instructions: ED Chest Pain, Uncertain Cause Prescriptions: No Action citalopram 40 MG tablet 40 mg PO DAILY Patient Comments: antidepressant enalapril maleate [Vasotec] 20 MG tablet 20 mg PO DAILY Patient Comments: HTN aspirin 81 MG tablet,chewable 81 mg PO DAILY@0800 Patient Comments: heart health Primary Care Provider: Prashant Cruz Referrals: Prashant Cruz MD [Primary Care Provider] - Keep Michael appointment Print Language: Tanzanian Disposition Disposition: Home, Self Care
--- NOTE | 2024-06-18 20:47 | EKG12_ITS ---
Test Reason : CP Blood Pressure : */* mmHG Vent. Rate : 73 BPM Atrial Rate : 73 BPM P-R Int : 172 ms QRS Dur : 82 ms QT Int : 404 ms P-R-T Axes : 49 -22 24 degrees QTcB Int : 445 ms Normal sinus rhythm Normal ECG Confirmed by Trevin Carrasco ([id number]), assistant editor RUPERT TOLEDO ([id number]) on 06/20/2024 6:52:21 AM Referred By: Confirmed By: Trevin Carrasco
[2024-06-18] MEDS: Aspirin 81 MG TAB.CHEW 324 MG PO (20:54)
--- NOTE | 2024-06-18 20:55 | RAD_ITS ---
PROCEDURE: CHEST PA AND LATERAL REASON FOR EXAM: Chest pain TECHNIQUE: Frontal and lateral views of the chest. COMPARISON: June 2023 FINDINGS: Small lung volumes and bronchial thickening.. No localizing infiltrate, effusion or pneumothorax. Stable heart size and mediastinum RAD/Chest PA and Lateral IMPRESSION: Stable examination. No acute cardiopulmonary process detected radiographically Reading Location: [id number]
[2024-06-18 21:10] LABS: Absolute Lymphocyte Count 1.52 X10^3/uL (0.83-4.51); Absolute Neutrophil Count 12.4 X10^3/uL (2.0-7.7); Basophil# 0.04 X10^3/uL; Basophil% 0.3 % (0-1); Eosinophil# 0.17 X10^3/uL; Eosinophils% 1.1 % (0-5); Hematocrit 41.9 % (40-54); Lymphocyte # 1.52 X10^3/ul (0.83-4.51); Mean Corp Hgb Conc 33.4 g/dL (32-36); Mean Corpuscular Volume 86.9 fL (80-94); Mean Platelet Vol. 11.3 fl (6.2-12.0); Monocyte# 1.08 X10^3/uL; Monocyte% 7.1 % (0-10); NRBC Flagged by Analyzer 0 % (0-5); Neutrophil # 12.37 X10^3/uL (2.7-7.7); Neutrophil % 81.1 % (47-70); Platelet Count 267 K/mm3 (150-450); RBC Distribution Width CV 14.4 % (11.6-14.6); Red Blood Count 4.82 M/mm3 (4.6-6.2); White Blood Count 15.2 K/mm3 (4.4-11.0)
[2024-06-18 21:49] LABS: Anion Gap 12 (5-15); BUN 15 mg/dL (4-19); BUN/Creat Ratio 21.3 RATIO (10-20); Calcium 8.8 mg/dL (7.6-11.0); Carbon Dioxide 25.1 mmol/L (22.0-29.0); Chloride 101 mmol/L (96-108); Creatinine, Serum 0.69 mg/dL (0.70-1.20); EST Glomerular Filtration Rate 100 (>60); Estimated Creatinine Clearance 96.22 ml/min (50-250); Glucose 114 mg/dL (70-99); Potassium 4.1 mmol/L (3.3-5.1); Sodium Level 138 mmol/L (133-145); Troponin T High Sensitivity 18 ng/L (<=22)
[2024-06-18 23:32] LABS: TROPONIN VARIANCE 2 HR 2; Troponin T High Sens 2 HR 16 ng/L (<=22)
== END 2024-06-18 23:57 | disposition home or self-care (01) ==
PROVIDERS: Emergency Provider Emergency Medicine; PCP Family Medicine; Visit Provider Emergency Medicine
DX: R07.9 Chest pain, unspecified (principal); I10 Essential (primary) hypertension; Z79.899 Other long term (current) drug therapy; Z79.82 Long term (current) use of aspirin; Z86.73 Personal history of transient ischemic attack (TIA), and cerebral infarction without residual deficits
CPT/HCPCS: 71046; 80048; 84484; 85025; 93005; 99285; A4216

== ENCOUNTER 2024-09-02 21:22 | Emergency (ER) | payer MEDICARE, SELFPAY ==
[2024-09-02 21:23] VITALS: BP 163/109; PULSE 88; RESP 15; TEMP 36; O2SAT 98; BMI 28.0
--- NOTE | 2024-09-02 21:26 | EDS_ITS ---
HPI HPI - Fall History of Present Illness Chief Complaint: Fall PFSH PFSH Medical History (Updated 06/26/24 @ 00:02 by Background Enrique) Rotator cuff dysfunction Carpal tunnel syndrome, bilateral Hypertension Hyperlipidemia Depression Transient ischemic attack Home Medications ?Medication ?Instructions ?Recorded ?Last Taken ?Type aspirin 81 mg chewable tablet 162 mg PO DAILY@0800 11/0206/17/24 History citalopram 40 mg tablet 40 mg PO DAILY 06/25/15 03/0 11/02 History lisinopril 20 mg tablet 20 mg PO DAILY 09/02/24 Unkn own History meloxicam 15 mg tablet 15 mg PO DAILY 09/02/24 Unkn own History simvastatin 20 mg tablet 20 mg PO DAILY 09/02/24 Unkn own History Allergy/AdvReac Type Severity Reaction Status Date / Time No Known Allergies Allergy Verified 09/02/24 21:23 Surgical History (Updated 06/18/24 @ 20:[address] Orlando Meza DO) History of carpal tunnel surgery Hx of repair of right rotator cuff H/O hand surgery Social History Smoking Status: Never smoker EXAM Physical Exam Const Vital Signs: 09/02/24 21:23 09/02/24 21:28 Temperature 96.8 F L Temperature Source Oral Pulse Rate 88 Respiratory Rate 15 Respiratory Effort Normal Blood Pressure 163/109 H Blood Pressure Mean 127 Pulse Ox 98 Oxygen Delivery Method Room Air MDM MDM MDM Narrative Medical decision making narrative: HISTORY OF PRESENT ILLNESS: Chief complaint: Left hand pain, left shoulder pain 69-year-old male presents after he tripped and fell. Notes he injured his left hand and left shoulder. Per triage note he denies loss of consciousness no blood thinners. He further states he simply tripped. Denies any lightheadedness or dizziness prior to fall. Notes he did strike the left side of his face and injured his left hand and shoulder. Denies loss of consciousness. Denies being on blood thinners. REVIEW OF SYSTEMS: Pertinent positives: Left hand pain, shoulder pain Pertinent negatives: Loss of consciousness PHYSICAL EXAM: Nursing triage notes reviewed, Vital signs reviewed Primary Survey Airway: Intact Breathing: Bilateral breath sounds Circulation: Palpable bilateral femorals, Palpable bilateral radial, Palpable bilateral DP and Palpable bilateral PT Disability / Spine precautions GCS Score: Eye Openin Verbal Response: 5 Motor Response: 6 Secondary Survey Constitutional: Please see MDM Head: Atraumatic, Midface stable, NO jaw malocclusion, No Cephalohematoma, and No Lacerations noted Eye: Pupils equal round and reactive to light, Extraocular muscles intact and No periorbital ecchymosis or stepoff, no evidence of entrapment ENT: Oropharynx clear, no lacerations, no hemotympanum, no raccoon eyes or mirza sign Cervical spine / Neck: No cervical spine bony tenderness, crepitance, or stepoff deformity Trachea midline Lungs: Clear to auscultation, No asymmetric rise and No crepitus, no flail chest Cardiac: Regular rate and rhythm and No murmurs Abdomen: Soft, Nontender and No rebound Pelvis: Pelvis stable to compression : No evidence of genital injury Back: No midline bony tenderness to thoracic/lumbar/sacral spines Neuro: At baseline, intact strength and sensation in bilateral upper and lower extremities. 2+ patellar reflexes bilaterally. Extremities: NO gross Deformities, bruising noted to the 3rd and 4th digits of the left hand, full range of motion left shoulder. No step-offs deformities noted to the left clavicle or left shoulders. Psych: Normal affect Nursing triage notes reviewed, Vital signs reviewed MEDICAL DECISION MAKING: Chief Complaint: please see HPI External records reviewed: Reviewed prior medications. No blood thinners noted Factors affecting care: reviewed prior imaging studies: Reviewed clavicle x-ray from 2023 Social determinants of health: none History obtained from others: none Consults: none [facility] Narrative: The patient was initially hemodynamically stable, afebrile and nontoxic-appear ing. Exam with injuries to the left hand. But intact range of motion to the shoulder I considered the following differential diagnosis: ICH, shoulder fractures location, hand fracture dislocation I offered a CT scan of the head to the patient given his age and head trauma. Patient was alert and orient x 3 and had capacity to make his own medical stations. He chose to forego advanced imaging of the brain at this time stating he feels like he is not injured so severely. ALL IMAGES (IF OBTAINED) HAVE BEEN PERSONALLY REVIEWED AND INTERPRETED BY MYSELF. X-ray of the left hand and left shoulder were read and reviewed personally by myself and showed no sign of obvious bony abnormality. Reviewed my interpretation The patient and/or family, caregivers express understanding. The patient and/or family, caregivers agrees with the plan. Shared decision making: I will have a discussion with the patient and or visitors regarding risk/benefits of further testing or admission. They will be made aware of of the risk/benefits inherent in this decision they will be given the opportunity to voice understanding. Total critical care time today provided was at least 0 minutes. This excludes separately billable procedures. Critical care time (if documented) is secondary to the patient having high probability of clinically significant/life threatening deterioration in the patient's condition which required my urgent intervention. Impression: 1. Acute left hand pain 2. Acute left shoulder pain 3. Fall Dispo: Discharge home This note was generated with [employer] dictation software. It may contain incorrect words, spelling, and punctuation that were not noted in review of the chart prior to signing. 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 Reading Location: [facility] Shoulder X-Ray 09/02/24 21:40 IMPRESSION: Degenerative changes as above. Reading Location: [facility] Discharge Plan Triage Chief Complaint: Fall ED Provider: Noah Lei Dx/Rx/DC Orders Instructions: Bone Contusion Prescriptions: No Action citalopram 40 MG tablet 40 mg PO DAILY Patient Comments: antidepressant aspirin 81 MG tablet,chewable 162 mg PO DAILY@0800 Patient Comments: heart health lisinopril 20 mg tablet 20 mg PO DAILY meloxicam 15 mg tablet 15 mg PO DAILY simvastatin 20 mg tablet 20 mg PO DAILY Primary Care Provider: Prashant Cruz Referrals: Prashant Cruz MD [Primary Care Provider] - Activity Restrictions/Additional Instructions: Thank you for trusting us with your care today! Please take Tylenol (2 pills, 650 mg), ibuprofen (2 pills, 400 mg) every 6 hours as needed for pain and fever control. Please return to the emergency department if your symptoms change or worsen. Please follow with your primary care physician for further outpatient evaluation and management. Print Language: Italian Disposition Disposition: Home, Self Care
--- NOTE | 2024-09-02 21:40 | RAD_ITS ---
EXAM: XR Left Shoulder Complete, 2 or More Views CLINICAL INDICATION: PAIN TECHNIQUE: Two or more views of the left shoulder. COMPARISON: No relevant prior studies available. FINDINGS: BONES/JOINTS: Moderate degenerative change of the acromioclavicular and glenohumeral joints. No acute fracture. No dislocation. SOFT TISSUES: Soft tissue swelling. RAD/Shoulder min 2 Views IMPRESSION: Degenerative changes as above. Reading Location: [id number]
--- NOTE | 2024-09-02 21:40 | RAD_ITS ---
EXAM: XR Left Hand Complete, 3 or More Views CLINICAL INDICATION: HAND PAIN AFTER FALL TECHNIQUE: Frontal, lateral and oblique views of the left hand. COMPARISON: No relevant prior studies available. FINDINGS: BONES/JOINTS: Severe degenerative changes of the intertarsal joints, which limit the evaluation for subtle fracture. No dislocation. SOFT TISSUES: Soft tissue swelling. No radiopaque foreign body. RAD/Hand Min 3 Views IMPRESSION: Severe degenerative changes of the intertarsal joints, which limit the evaluati on for subtle fracture. Reading Location: [id number]
[2024-09-02 22:39] VITALS: BP 155/69; PULSE 67; RESP 18; TEMP 36.6; O2SAT 95
== END 2024-09-02 22:40 | disposition home or self-care (01) ==
PROVIDERS: Emergency Provider Emergency Medicine; PCP Family Medicine; Visit Provider Emergency Medicine
DX: M79.642 Pain in left hand (principal); M25.512 Pain in left shoulder; I10 Essential (primary) hypertension; E78.5 Hyperlipidemia, unspecified; Z79.82 Long term (current) use of aspirin; Z79.899 Other long term (current) drug therapy; Z86.73 Personal history of transient ischemic attack (TIA), and cerebral infarction without residual deficits; W19.XXXA Unspecified fall, initial encounter
CPT/HCPCS: 73030; 73130; 99282

== ENCOUNTER 2025-01-24 14:53 | Emergency (ER) | payer MEDICARE, SELFPAY ==
[2025-01-24 14:53] VITALS: BP 191/92; PULSE 74; RESP 16; TEMP 36.6; O2SAT 98
[2025-01-24 14:55] VITALS: BMI 29.6
[2025-01-24 15:06] VITALS: O2SAT 98
--- NOTE | 2025-01-24 15:06 | EKG12_ITS ---
Test Reason : CP Blood Pressure : */* mmHG Vent. Rate : 66 BPM Atrial Rate : 66 BPM P-R Int : 176 ms QRS Dur : 86 ms QT Int : 422 ms P-R-T Axes : 43 -11 29 degrees QTcB Int : 442 ms Normal sinus rhythm Normal ECG Confirmed by KAIT ANAND, ISA ([id number]), assistant editor RUPERT TOLEDO ([id number]) on 01/25/2025 1:27:22 PM Referred By: Confirmed By: ISA CARBALLO MD
[2025-01-24 15:13] LABS: Hematocrit 42.9 % (40-54); Hemoglobin 14.5 g/dL (13.0-16.5); Immature Granulocytes Count 0.020 X10^3/uL (0.0-0.0); Mean Corp Hgb Conc 33.8 g/dL (32-36); Mean Corpuscular Volume 88.1 fL (80-94); Mean Platelet Vol. 10.9 fl (6.2-12.0); NRBC Flagged by Analyzer 0 % (0-5); Platelet Count 239 K/mm3 (150-450); RBC Distribution Width CV 14.5 % (11.6-14.6); RBC Distribution Width SD 46.3 fl (35.1-43.9); Red Blood Count 4.87 M/mm3 (4.6-6.2); White Blood Count 7.4 K/mm3 (4.4-11.0)
--- NOTE | 2025-01-24 15:16 | ED.VIS.CHEST ---
HPI History of Present Illness Chief Complaint: Chest Pain Informant: patient Onset/Context/Timing Onset: Today and Hours Activity at onset: gradual Timing: Continuous Quality: Positive for Tightness Location: Right Parasternal and Left Parasternal Current Severity: Mild Maximum Severity: Mild Worsened By: Nothing Relieved By: Nothing Associated Symptoms: Negative for Nausea, Vomiting, Diaphoresis, Dyspnea, Cough, Fever, Lightheadedness, Acid Reflux or Palpitations Narrative Narrative: 69-year-old male history of hypertension no prior cardiac disease. States he was at his friend's house he was eating [facility] chicken and drinking coffee when he developed chest pressure or tightness. Began around noon still having it now. Nothing particular makes it better or worse. He has had no recent exertional symptoms. He denies any nausea or shortness of breath. He denies any diaphoresis. He has never had a DVT or PE nor risk factors. The pain is not pleuritic. No leg pain or swelling. No hemoptysis. Of note recently did have a nuclear stress test in November that was negative. Prior Similar Symptoms: Yes Recent Illness/Hospitalization: No CVD Risk Factors: Positive for Hypertension; Negative for Diabetes, Hypercholesterolemia, Family History 1' </=55 or Smoking PE Risk Factors: Negative for Recent Travel/Surgery, Recent Immobilization, Prior DVT or PE or OCP + Smoking + >/=35 TAD Risk Factors: Negative for Marfan's Syndrome [facility] Medical History Rotator cuff dysfunction Carpal tunnel syndrome, bilateral Hypertension Hyperlipidemia Depression Transient ischemic attack Home Medications ?Medication ?Instructions ?Recorded ?Last Taken ?Type aspirin 81 mg chewable tablet 162 mg PO QHS HEART 06/25/15 01/23/25 History citalopram 40 mg tablet 40 mg PO DAILY DEPRESSION/ANXIETY 06/25/15 01/24/25 History meloxicam 15 mg tablet 15 mg PO DAILY ARTHRITIS 09/02/24 01/24/25 History simvastatin 20 mg tablet 20 mg PO QHS CHOLESTEROL 09/02/24 01/23/25 History losartan 50 mg tablet 50 mg PO DAILY BLOOD PRESSURE 01/24/25 01/24/25 History mallhsog-lv-twrnl 300 mcg-K 60 1 tab PO DAILY SUPPLEMENT 01/24/25 01/24/25 History mcg-lycop 600 mcg-lutein 300 mcg tablet (Centrum Silver Men) Allergy/AdvReac Type Severity Reaction Status Date / Time No Known Allergies Allergy Verified 01/24/25 14:55 Surgical History History of carpal tunnel surgery Hx of repair of right rotator cuff H/O hand surgery Social History Smoking Status: Never smoker ROS ROS ED ROS Narrative Denies recent illness. Denies exertional chest pain. Constitutional Constitutional ED: Denies chills or fever(s) Eyes Eyes: Reports none ENT ENT ED: Denies ear pain Cardiovascular Cardiovascular: Reports as per HPI and chest pain Respiratory/Chest Respiratory/Chest: Denies cough, dyspnea or dyspnea on exertion Gastrointestinal Gastrointestinal: Denies abdominal pain, diarrhea, melena, nausea or vomiting Genitourinary Genitourinary ED: Denies dysuria or hematuria Musculoskeletal Musculoskeletal: Denies arthralgias or back pain Integumentary Denies abscess Neurologic Neurologic: Denies headache(s) Psychiatric Psychiatric: Denies anxiety Endocrine Endocrinology: Denies cold intolerance Hematologic/Lymphatic Hematologic/Lymphatic: Denies easy bleeding, easy bruising or lymphadenopathy Allergic/Immunologic Allergic/Immunologic ED: Denies mouth swelling, tongue swelling or urticaria EXAM Physical Exam Narrative Exam Narrative: Well-appearing 69-year-old male. Vital signs stable afebrile. Also is 98% on room air no hypoxia. No acute distress. H EENT exam pupils round react light. Extra motions are intact. Neck nontender no JVD. No lymphadenopathy. Back nontender. Lungs clear to auscultation bilaterally. Heart regular rhythm no murmur. Chest wall nontender. Abdomen soft nontender. Moving all 4 extremities. Calves are nontender without edema or cords. Equal symmetrical radial pulses. Neurologically patient is awake alert. No focal motor deficits. Answering questions following commands. Benign exam. Const Vital Signs: 01/24/25 14:53 01/24/25 15:06 01/24/25 16:48 Temperature 98 F Temperature Source Oral Pulse Rate 74 65 Respiratory Rate 16 16 Blood Pressure 191/92 H 152/85 H Blood Pressure Mean 125 107 Pulse Ox 98 98 95 Oxygen Delivery Method Room Air Room Air Room Air Positive well nourished and well developed; Negative for cachectic, contractures or unkempt General Appearance ED: well developed and NAD; Negative for unkempt, cachectic, contractures or pallor Nutritional Appearance: Negative for cachectic HEENT normocephalic and atraumatic Eyes PERRL and EOMs intact bilaterally General Eye ED: Negative for pale conjunctiva or scleral icterus Neck no lymphadenopathy, supple and no JVD General: Negative for tenderness Chest Wall inspection of chest normal and palpation of chest normal Chest: Negative for tenderness Resp normal respiratory effort and clear to auscultation bilaterally Effort and Inspection: Negative for respiratory distress Auscultation: Negative for rales, rhonchi, wheezes or diminished lung sounds Cardio regular rate, regular rhythm, S1 normal heart sound, S2 normal heart sound and no murmurs Peripheral Pulses: pulses 2+ throughout GI normal to inspection, nondistended, normoactive bowel sounds, soft to palpation, non-tender, non-distended and no masses Back/Spine no CVA tenderness and no thoracic nor lumbar tenderness Extremity normal to inspection General Extremety ED: Negative for edema, pulses abnormal or tenderness General Extremity: Negative for edema or pulses abnormal Neuro oriented x3 and CN's II-XII intact bilaterally Sensorium / Orientation: awake, alert, oriented to person, oriented to place and oriented to time; Negative for confused, lethargic or stuporous Motor Exam: strength 5/5 throughout Psych mental status grossly normal Appearance: Negative for unkempt Attitude: No agitated Mood & Affect: Negative for depressed, anxious or tearful Skin no rashes or lesions noted and no wounds General Skin Exam: Negative for jaundice or pallor Rashes: No rashes noted Trauma: Negative for abrasion or laceration Heart Score History: Slightly/Non-Suspicious ECG: Normal Age: >/= 65 years Risk Factors: 1 or 2 Risk Factors Troponin: </= Normal Limit Score: 3 MDM MDM MDM Narrative Medical decision making narrative: 69-year-old male atypical chest pain. Not exertional. No DVT or PE history or risk factors. I will undergo cardiac workup. His initial EKG is normal sinus rhythm. I do not think is a DVT or PE and he has no risk factors for that. Repeat exam patient doing well at 3:45 PM. Awaiting 2-hour troponin. He and I went over his initial test results. Repeat exam around 6:09 PM patient doing well. Exam unchanged. Workup negative. To be discharged home for chest pain uncertain etiology. History & Record Review Discussion w/independent historian: Patient Additional record(s) reviewed:: Prior inpatient record, Prior outpatient record, Prior ED visit and Prior labs Lab Data Attestation: I reviewed the patient's lab results. Lab results narrative: CBC unremarkable. White count is 7. H&H 14 and 42. Chemistries show gap 11. BUN and creatinine of 20 and 0.6. Glucose 97. Initial troponin 14. 2-hour troponin is 13. Chest x-ray is unremarkable. Labs: Laboratory Results - last 24 hr 01/24/25 01/24/25 15:05 16:53 WBC 7.4 RBC 4.87 Hgb 14.5 Hct 42.9 MCV 88.1 MCH 29.8 MCHC 33.8 RDW Std Deviation 46.3 H RDW Coeff of Denys 14.5 Plt Count 239 MPV 10.9 Immature Gran % (Auto) 0.300 Neut % (Auto) 59.1 Lymph % (Auto) 28.7 Cochran % (Auto) 8.0 Eos % (Auto) 3.4 Baso % (Auto) 0.5 Absolute Neuts (auto) 4.4 Absolute Lymphs (auto) 2.13 Nucleated RBC % 0 Sodium 140 Potassium 4.2 Chloride 104 Carbon Dioxide 24.9 Anion Gap 11 BUN 20 H Creatinine 0.69 L Est GFR (MDRD) Non-Af 99 BUN/Creatinine Ratio 29.3 H Glucose 97 Calcium 8.7 Troponin T High Sens 14 D Troponin T Hi Sens 2 Hr 13 Radiography Chest X-Ray - ED: 1 View, Read by ED Physician, Read by Radiologist, Heart, Lungs, Mediastinum, Bony Structures, No Acute Disease and Chronic Changes Diagnostic Testing: Clinical Impression(s) from Imaging Studies Chest X-Ray 01/24/25 15:20 IMPRESSION: Mild cardiomegaly, slightly progressed since previous. Spondylosis. [facility] x-ray, portable, 2 x-rays 1 view interpreted by myself and radiologist shows borderline cardiomegaly no other acute process. Rhythm Strip Rhythm Strip: Sinus Rhythm Rate: 66 Ectopy: None EKG Initial EKG: Attestation: I personally reviewed and interpreted this EKG as follows: Interpretation: Sinus Rhythm and No Acute Injury Pattern Comments: Normal sinus rhythm rate of 66 no acute signs of OK or ischemia. Discharge Plan Triage Chief Complaint: Chest Pain ED Provider: Tom Wallis Dx/Rx/DC Orders Clinical Impression: Chest pain, History of hypertension Instructions: ED Chest Pain, Uncertain Cause Prescriptions: No Action citalopram 40 MG tablet 40 mg PO DAILY Patient Comments: antidepressant aspirin 81 MG tablet,chewable 162 mg PO QHS Patient Comments: heart health meloxicam 15 mg tablet 15 mg PO DAILY Patient Comments: TAKES WITH FOOD simvastatin 20 mg tablet 20 mg PO QHS losartan 50 mg tablet 50 mg PO DAILY Centrum Silver Men [phone] mcg tablet 1 tab PO DAILY Primary Care Provider: Prashant Cruz Referrals: Prashant Cruz MD [Primary Care Provider, Family Practice] - As Needed Activity Restrictions/Additional Instructions: Follow-up with your doctor for further evaluation. Today your EKG, chest x-ray and labs are basically unremarkable. Print Language: Telugu Disposition Disposition: Home, Self Care
--- NOTE | 2025-01-24 15:20 | RAD_ITS ---
PROCEDURE: CHEST 1 VIEW (PORTABLE) 01/24/2025 REASON FOR EXAM: CHEST PAIN TECHNIQUE: Frontal view of the chest. COMPARISON: 06/18/2024 chest radiograph. FINDINGS: Mildly enlarged cardiac silhouette has slightly progressed since previous. Normal pulmonary vasculature. No definite infiltrate, effusion, vascular congestion, mass, or nodule. Thoracic spondylosis. No definite hilar or mediastinal abnormality. RAD/Chest 1 View (Portable) IMPRESSION: Mild cardiomegaly, slightly progressed since previous. Spondylosis. [facility]
[2025-01-24 15:32] LABS: Anion Gap 11 (5-15); BUN 20 mg/dL (4-19); BUN/Creat Ratio 29.3 RATIO (10-20); Calcium,Total 8.7 mg/dL (7.6-11.0); Carbon Dioxide 24.9 mmol/L (21.0-32.0); Chloride 104 mmol/L (98-108); Glucose 97 mg/dL (70-99); Potassium 4.2 mmol/L (3.3-5.1); Troponin T High Sensitivity 14 ng/L (<=22)
[2025-01-24 16:48] VITALS: BP 152/85; PULSE 65; RESP 16; O2SAT 95
[2025-01-24 17:20] LABS: Troponin T High Sens 2 HR 13 ng/L (<=22)
[2025-01-24 18:16] VITALS: BP 156/104; PULSE 64; RESP 20; TEMP 36.7; O2SAT 96
== END 2025-01-24 18:18 | disposition home or self-care (01) ==
PROVIDERS: Emergency Provider Emergency Medicine; PCP Family Medicine; Visit Provider Emergency Medicine
DX: R07.9 Chest pain, unspecified (principal); I10 Essential (primary) hypertension; E78.5 Hyperlipidemia, unspecified; F32.A Depression, unspecified; Z86.73 Personal history of transient ischemic attack (TIA), and cerebral infarction without residual deficits; Z79.82 Long term (current) use of aspirin; Z79.899 Other long term (current) drug therapy
CPT/HCPCS: 71045; 80048; 84484; 85025; 93005; 99284; A4216